=== PATIENT | male | born 1960 | race Caucasian/White ===

== ENCOUNTER 2017-06-26 09:06 | Inpatient (IN) ==
[~2017-06-26 09:06] MED LIST: BUPIVACAINE 0.25%/EPI 1:200,000 30ml SDV ONE; INDOCYANINE GREEN 25mg INJECTION ONE
[2017-06-26] MEDS ORDERED: SALINE FLUSH 10ml SYRINGE IV PRN (09:19)
[2017-06-26] MEDS ORDERED: LIDOCAINE 1% (10mg/ml) 2mL INJ PF SDV ID ONE (09:19)
[2017-06-26] MEDS ORDERED: HEPARIN SUB-Q 5,000units/0.5ml INJECTION SQ ONE (09:19)
[2017-06-26] MEDS ORDERED: ERTAPENEM 1 G in NS 100 ML IV ONE (09:19)
[2017-06-26 09:26] VITALS: BMI 28.0
[2017-06-26] MEDS: LR 1,000 ML IV SCH ×3 (09:53→15:45)
[2017-06-26] MEDS ORDERED: PROPOFOL 20 ML ONE ×2 (10:52→12:06)
[2017-06-26] MEDS ORDERED: ROCURONIUM 50 MG/5 ML INJECTION IVP ONE (10:52)
[2017-06-26] MEDS ORDERED: LACRI-LUBE EYE OINT 3.5gm ONE (10:57)
[2017-06-26] MEDS ORDERED: SEVOFLURANE 250ml LIQUID IH ONE (10:57)
[2017-06-26] MEDS ORDERED: FentaNYL 250 MCG/5 ML INJECTION ONE (11:38)
[2017-06-26] MEDS ORDERED: VECURONIUM 10 MG/10 ML VIAL IV ONE ×2 (12:07→13:37)
[2017-06-26] MEDS ORDERED: SALINE FLUSH 10ml SYRINGE ONE ×2 (12:07→12:26)
[2017-06-26] MEDS ORDERED: BUPIVACAINE 0.25%/EPI 1:200,000 30ml SDV SQ ONE (12:19)
[2017-06-26] MEDS ORDERED: EPHEDRINE 50mg/ml INJECTION ONE (12:26)
--- NOTE | 2017-06-26 15:30 | Operative Note ---
DATE OF PROCEDURE 06/26/2017 PREOPERATIVE DIAGNOSIS Colovesical fistula. POSTOPERATIVE DIAGNOSIS Colovesical fistula. PROCEDURE PERFORMED Placement of left ureteral stent. PRIMARY SURGEON Dominic Dick MD COMPLICATIONS None. DRAINS 14 [place]ian Joyce. INDICATION FOR THE PROCEDURE This is a 58-year-old patient who is undergoing a robotic colovesical fistula repair today with Dr. Woo. I was asked to place ureteral stents in the ureters in order to help identify them during the surgery. DESCRIPTION OF PROCEDURE The patient was prepped and draped in the room when I got here. He was in the dorsal lithotomy position. After a formal time-out was done, I introduced my rigid cystoscope inside the bladder. He had a slightly enlarged prostate. The two ureteral orifices were orthotopic in position. I began the procedure by placing the lighted stent on the right side over a wire. This was advanced to the two-bar shaan. Then the cystoscope was removed. I then reintroduced the cystoscope and placed a stent in a similar fashion on the left side. I then attempted to remove the cystoscope. However, every time I did that I was pulling one of the stents out with it. This was probably secondary to the fact that the urethra was too small to accommodate the scope and two stents. I attempted to use a smaller cystoscope which was a 17 Maur[place]ian. However, I kept having the same problem. In discussion with Dr. Woo, he was okay with placing a stent just on the left side. So, I put the lighted stent on the left side over a wire, then removed my cystoscope. I then placed a 14 [place]ian Joyce in the bladder and secured it to the stent with silk ties. The lighted stent was then connected to the electrodes and to the generator. This concluded the urology portion of the procedure. The care of the patient was handed to Dr. Woo at this point. [facility]
[2017-06-26] MEDS ORDERED: INDOCYANINE GREEN 25mg INJECTION IVP ONE (15:51)
[2017-06-26] MEDS ORDERED: ONDANSETRON 4 MG/2 ML INJECTION IVP PRN (16:21)
--- NOTE | 2017-06-26 16:49 | General Surgery Procedure Note ---
Date of Procedure: 06/26/17 Surgeon: Daya Woo (Dr. Dick for ureteral stents) Conservation Science Teacher: Gray Valdovinos APRN Postoperative Diagnosis: colovesicle fistula Procedure: Robotic assisted with conversion to open sigmoid colectomy with primary anastamosis and repair of colovesicle fistula Estimated Blood Loss: See Anesthesia Record.
[2017-06-26] MEDS: HYDROMORPHONE 2 MG/ML INJECTION IVP PRN ×4 (17:01→17:31)
[2017-06-26] MEDS: DiphenhydrAMINE 50 MG/ML INJECTION IVP PRN ×2 (17:36→18:22)
[2017-06-26] MEDS: MORPHINE SULFATE 10 MG/ML VIAL IVP PRN ×5 (17:46→18:36)
[2017-06-26] MEDS ORDERED: ONDANSETRON ODT 4 MG TABLET PO PRN (18:55)
[2017-06-26] MEDS ORDERED: METOCLOPRAMIDE 10mg/2ml INJECTION IVP PRN (18:55)
[2017-06-26] MEDS ORDERED: HYDROMORPHONE 2 MG/ML INJECTION IVP PRN (18:55)
[2017-06-26] MEDS: MORPHINE PCA 30 MG/30 ML SYRINGE IV PRN (19:09)
--- NOTE | 2017-06-26 19:43 | Anesthesia Postoperative Note ---
- Date and Time Date: 06/26/17 Time: 19:43 - Status Patient Participated in Evaluation: Patient Participated in Person Vital Signs: Temperature 97.2 F 06/26/17 18:50 Pulse Rate 97 06/26/17 18:45 Respiratory Rate 20 06/26/17 19:14 Blood Pressure 125/60 06/26/17 18:45 Pulse Oximetry 93 06/26/17 18:45 Respiratory Function: Airway Patent, Regular Respirations Cardiovascular Function: Regular Pulse EKG: Sinus Rhythm Mental Status: Alert and Oriented Pain Intensity: 6 Hydration: IV Infusing Complications During Recover: None Apparent - Follow-Up Instructions Instructions: Per Surgeon
[2017-06-26] MEDS: D5-1/2NS with KCL 20mEq 1,000 ML IV SCH (20:06)
[2017-06-26] MEDS ORDERED: ALBUTEROL 2.5mg/3ml (0.083%) NEB AEROSOL PRN (20:12)
[2017-06-26] MEDS ORDERED: LR 1,000 ML IV SCH (21:00)
[2017-06-26] MEDS: KETOROLAC 30 MG/ML INJECTION IVP PRN (23:38)
[2017-06-27] MEDS: D5-1/2NS with KCL 20mEq 1,000 ML IV SCH ×3 (04:35→22:33)
[2017-06-27] MEDS: KETOROLAC 30 MG/ML INJECTION IVP PRN ×3 (05:45→17:40)
[2017-06-27] MEDS: PANTOPRAZOLE 40 MG INJECTION IVP SCH (08:37)
--- NOTE | 2017-06-27 08:37 | General Surgery Progress Note ---
Subjective Patient reports: no flatus (but feels like he is about to pass flatus, there are bowel sounds) Narrative: In the recliner this morning. Denies nausea, wants food. States pain fairly well controlled with Toradol and occasional Morphine COST ESTIMATING ENGINEER dose. Pain worst with cough or sneeze. - Vital Signs Last Vital Signs Temp 98.3 F 06/27/17 04:00 Pulse 84 06/27/17 08:00 Resp 16 06/27/17 08:00 BP 114/63 06/27/17 06:00 Pulse Ox 100 06/27/17 08:00 - Laboratory Result Diagrams: 06/27/17 04:29 06/27/17 04:29 - Pathology Pending - Abnormal Exam Abdominal: obese, hypoactive bowel sounds (but present) - Normal Exam General: awake, alert, oriented, no acute distress Cardiovascular: regular rate Respiratory: clear bilaterally, no labored breathing Abdominal: appropriately tender, incision(s) (stapled, dressings not removed) Male: other (Caba in place, 40 ml the last hour, dark tea colored, not unexpected after having had ureteral stents.) Assessment and Plan (1) Colovesical fistula Current Visit: Yes Status: Acute (2) Hx of diverticulitis of colon Current Visit: Yes Status: Resolved (3) Arthritis Current Visit: Yes Status: Chronic (4) HTN (hypertension) Current Visit: Yes Status: Chronic Qualifiers: Hypertension type: essential hypertension Qualified Code(s): I10 - Essential (primary) hypertension Plan: POD #1 post open sigmoid resection with bladder repair for colovesical fistula some bowel sounds, pain controlled with Toradol and occasional Morphine COST ESTIMATING ENGINEER, Caba with adequate output, dark tea colored as expected after ureteral stents Will advance to clear liquid diet Keep caba in place for about a week to keep bladder decompressed and allow time for repair to heal. Continue Invanz daily due to spillage of puss and some stool into the abd during surgery. BP 114/55, will hold off on starting home HTN meds for now. Lovenox and SCD's for DVT prophylaxis. Protonix for gastric protection. Hospital Course Summary Disclaimer: The visit summary below is not to be considered part of the above Progress Note. Hospital Course: 06/27/2017 POD #1 post open sigmoid resection with bladder repair for colovesical fistula some bowel sounds, pain controlled with Toradol and occasional Morphine COST ESTIMATING ENGINEER, Caba with adequate output, dark tea colored as expected after ureteral stents Will advance to clear liquid diet Keep caba in place for about a week to keep bladder decompressed and allow time for repair to heal. Continue Invanz daily due to spillage of puss and some stool into the abd during surgery. BP 114/55, will hold off on starting home HTN meds for now. Lovenox and SCD's for DVT prophylaxis. Protonix for gastric protection.
[2017-06-27] MEDS: ENOXAPARIN 40 MG/0.4 ML INJECTION SQ SCH (08:38)
--- NOTE | 2017-06-27 09:04 | Operative Note ---
DATE OF SERVICE 06/26/2017 SURGEON Jose Manuel Woo MD PETROLEUM REFINERY LABORER Gray Valdovinos APRN PREOPERATIVE DIAGNOSIS History for abdominal pain, abnormal CT scan revealing probable diverticular abscess in conjunction with colovesical fistula. POSTOPERATIVE DIAGNOSIS History for abdominal pain, abnormal CT scan revealing probable diverticular abscess in conjunction with colovesical fistula. PROCEDURE Attempted robotic assisted laparoscopic low anterior with conversion to open procedure and repair of colovesical fistula/low anterior resection. ANESTHESIA General endotracheal EBL AND FLUIDS Please see chart. BRIEF HISTORY/INDICATIONS Mr. Rizo is a 57-year-old gentleman who recently had been evaluated by his urologist, Dr. Dick. The patient did have a history for pneumaturia and fecaluria consistent with that of a colovesical fistula. Upon cystoscopy he was not found to have an obvious colovesical fistula. He did, however, have a CT scan that revealed a probable diverticular abscess in conjunction with a visible colovesical fistula. The patient had a history for diverticulitis in the past. Patient had underwent a colonoscopy per his report about a year ago that was within normal limits. The patient was began on oral antibiotics. Three to four weeks later, a CT scan was obtained that did not reveal resolution of the diverticular abscess but did reveal improvement of the size of the abscess. As a result of the above indications, it was recommended to the patient that he undergo surgical intervention/sigmoid/low anterior resection. Patient presents today to undergo this procedure. FINDINGS Upon laparoscopy and laparotomy, the liver edge was smooth and without nodularities. Gallbladder was without palpable stones. Small bowel was without noted abnormalities. The ascending colon, transverse colon, and descending colon were normal down to the distal aspect of the sigmoid colon. There was a distal portion of the sigmoid colon that was densely adhered along the left lateral pelvic wall. The sigmoid colon itself had also formed a loop upon itself and was densely adherent to itself as well as to the rectum. A portion of the sigmoid colon was also densely adhered to the bladder. Furthermore, there was some small bowel that was also adhered along this phlegmonous mass within the pelvis. I attempted to resect this phlegmonous mass in a robotic assisted laparoscopic approach. This was to no avail and the procedure was therefore converted to an open procedure. Sigmoid colon and proximal rectum was resected. A small opening could be seen within the bladder after the colon was dissected away from the bladder. The hole in the bladder was fairly small and on the order of about 5-8 mm in diameter. The bladder was repaired in two layers. An anastomosis/coloproctostomy was performed without incident. DESCRIPTION OF PROCEDURE After informed consent was obtained, patient was brought to the operative suite , placed on the table in a supine fashion. The abdomen was then prepped and draped in sterile fashion. Formal time-out was then completed. 0.25% Marcaine with epinephrine was injected just beneath the left subcostal margin. A 4-5 mm incision was made through the area of analgesia. Veress needle was then introduced through the small incision and into the peritoneal cavity. Pneumoperitoneum was established to a patient pressure of 15 mmHg utilizing carbon dioxide. Next, additional 0.25% Marcaine with epinephrine was injected about 5 cm cephalad and to the right of the umbilicus. A 2 cm incision was then made overlying the area of analgesia. A camera port was then advanced through this small incision and into the peritoneal cavity. Laparoscope was then inserted and one could see the Veress needle as it coursed through the anterior abdominal wall in the left upper quadrant. The Veress needle was removed under direct visualization. Two additional 8 mm ports were then placed within the left upper quadrant of the anterior abdominal wall as well as along the left lateral abdominal wall. A stapler port was placed within the right lower quadrant. Am AirSeal assist port was then also placed within the right upper quadrant. Each port site was preinjected with 0.25% Marcaine with epinephrine and placed under direct visualization. The patient was then placed in reverse Trendelenburg and rotated towards his right. Small bowel was then attempted to be advanced up into the right upper quadrant of the abdomen. One could see there were some adhesions between a segment of the small bowel and the phlegmonous mass that could be seen within the left lower quadrant of the abdominal cavity. Next, the robot was then docked overlying the patient's left hip at a 45 degree angle. I then proceeded to the console. A Graptor was placed within robotic arm #3. Fenestrated bipolar grasper was placed in robotic arm #2. Scissors were placed in robotic arm #1. First the white line of Toldt was incised along the left pericolic gutter and then the left colon was reflected medially. Urology had placed a ureteral stent which did light up very well and one could clearly see the anatomic location of the left ureter which did aid in the dissection. Left colon was then continued to be reflected medially. Attention was then focused towards the phlegmonous mass within the left pelvis. There was a portion of small bowel adhered to the phlegmonous mass. Careful and meticulous dissection was carried out and the small bowel that was adhered to the sigmoid colon and rectum was dissected away. The rectum and sigmoid colon were densely adhered along the left lateral pelvic wall as well as to the bladder itself. Perhaps the next hour to hour-and-a- half was spent attempting to dissect this phlegmonous mass away from the left lateral pelvic wall and from the bladder. Perhaps about 50% of the phlegmonous mass was able to be dissected away. A small abscess was encountered anterior to the sigmoid colon, adjacent to the bladder. This abscess was involving the anterior aspect of the bladder and slightly to the left of midline. One could see stool-like contents as well as some "corn" within the abscess cavity. Upon entering the abscess cavity, utilizing the da Wes robotic suction tip, the abscess was quickly suctioned and did not spill within the peritoneal cavity. Debris within the abscess cavity was removed. Dissection was then continued for an additional 15-20 minutes. I did reach a point where I felt like the procedure was not progressing and we were reaching somewhat of a "stalemate" in the procedure as a result of the marked inflammatory changes that were present and the loss of normal tissue planes. I therefore elected to proceed with conversion to an open procedure. Robot was then undocked. A standard midline incision was then made from just above the pubic symphysis up to and above the umbilicus. A Bookwalter retractor was then placed to provide adequate exposure. One could then see this phlegmonous mass that was densely adhered along the left lateral pelvic wall as well as to the bladder. A finger fracture technique was utilized and a portion of the adhesions was able to be taken down in this fashion. Next, utilizing electrocautery as well as right angle dissector, the remaining phlegmonous mass was able to be carefully and meticulously dissected away from the left lateral pelvic wall as well as from the bladder. The left ureter was clearly identified and preserved in its entirety during this process. Next I elected to proceed with resection of the diseased segment. A point upon the colon was then ascertained within the mid descending colon region about 15 cm proximal to this phlegmonous mass. A small opening was then created within the mesentery and ESA 75 stapler was placed across this location and fired. The mesentery was then sequentially divided between the right angle clamps down towards the sacral promontory region. Next , the mesorectum was then divided sequentially between right angle clamps up to a point about 5 cm beyond the phlegmonous mass involving the proximal rectum and sigmoid colon. Mesorectum was incised out laterally. A tissue plane was created between the bladder and the anterior aspect of the rectum and dissection was carried out down to slightly below the peritoneal reflection until healthy "pliable" rectum was obtained. The mesorectum was then divided up to this point. Contour stapler was then placed across the rectum at this location just beneath the peritoneal reflection and fired. The sigmoid colon and proximal rectum were then passed off the table as a surgical specimen. Attention was then focused back towards the bladder. Right angle clamp was utilized and was able to eventually be advanced into a small opening of the anterior portion of the bladder where the colon was densely adhered to the bladder. The opening into the bladder was only on the order of about 5 mm in diameter. I then had the nurse clamp the Joyce catheter and irrigate the bladder with methylene blue saline. One could then see the methylene blue saline beginning to extravasate out through this small opening within the bladder at the site of the prior colovesical fistula. This small opening within the bladder was then closed in two layers utilizing 3-0 Vicryl. Then I had my nurse once again instill methylene blue saline into the bladder until the bladder was fairly distended. No further extravasation of methylene blue saline could be seen coming from the repair of the bladder. Nurse then unclamped the Joyce catheter to drain the bladder. Attention was then focused towards completion of the coloproctostomy. Proximal portion of the staple line was then grasped with two Derrick clamps and retracted anteriorly. The mesentery surrounding the colon at its end was then carefully and meticulously dissected away. Derrick clamp was then placed just proximal to the staple line for one could see a few diverticula adjacent to the staple line. Knife was then utilized and the colon was transected proximal to the Derrick clamp and the visible remaining diverticula were then excised. Three Allis clamps were then placed upon the transected end of the colon in a triangulated fashion. A 28 mm EEA sizer was able to be advanced into the transected end of the colon without difficulty. A 29 mm EEA stapler was then obtained. Anvil portion of the stapler was then placed through the transected end of the colon and the transected end of the colon was then closed in a pursestring fashion utilizing 2 -0 Prolene. Pursestring suture was then tied securely, resulting in a nice imbrication of the colonic mucosa against the anvil. Since we had the da Wes camera still present, I had Anesthesia administer 3 mL of ICG intravenously. I then utilized fluorescence capability of the da Wes camera and one could see that the colon fluoresced quite well down to the anvil portion of the stapler, i.e., there was excellent blood supply present down to the transected end of the colon. Next, attention was then focused back to the pelvis. I had my assistant statistician then proceed to break scrub and go between the patient's legs. The assistant statistician then advanced a 28 mm sizer up in through the anal verge and into the rectum. Sizer was then removed and she then advanced the stapler with my guidance up to the staple line upon the rectum. Trocar portion of the stapler was then opened and allowed to exit just lateral to the prior staple line upon the rectum. The anvil portion of the stapler was then attached to the trocar portion and the stapler was then tightened to the appropriate tension and fired. Stapler was then loosened and removed from the anal verge. It should also be noted the left ureter was continued to be visualized during the course of the dissection and anastomosis. It remained to be intact throughout its entirety. Saline was then placed within the pelvis. I then grasped the remaining descending colon proximal to the anastomosis so that it was occluded. Financial Compliance Officer then placed a rigid proctoscope into the anal verge and air was insufflated into the rectum and colon until the anastomosis was fairly taut with air. At no point in time could one see any air bubbles coming forth from the staple line. Rigid proctoscope was then removed. Instrument, sponge and needle count was performed and found to be correct. Prior areas of dissection were inspected and found to be hemostatic in nature. Attention was then directed towards closure. New gowns, gloves and instruments were then obtained. The fascial opening of the camera port and the stapler port was then closed with 0 Vicryl in a [id number] fashion. Fascia was then closed in a running fashion with #1 PDS suture. Skin and subcutaneous tissue were then irrigated with Betadine solution. Skin incisions were then closed with [place]. The patient was awakened from his anesthetic and sent back to the recovery room once deemed in stable condition. Additionally, it should be noted that Gray Valdovinos APRN, was present throughout the entire case and played a pivotal role in providing assistance and exposure during the course of the procedure. DILSHAD
[2017-06-27] MEDS: ERTAPENEM 1 G in NS 100 ML IV SCH (10:19)
--- NOTE | 2017-06-27 14:38 | Progress Note ---
DATE 06/27/2017 FINDINGS Mr. Rizo was seen this morning on rounds. He states that he has been doing fairly well. He has had some moderate incisional tenderness as one would expect. OBJECTIVE VITALS: Temperature 98.3, pulse 87, respirations 15, blood pressure 114/55, SaO2 97% on room air. CHEST: Clear to auscultation bilaterally. HEART: Regular rate and rhythm. Normal S1, S2, without gallops, murmurs or clicks. ABDOMEN: Palpation of the abdomen reveals some incisional tenderness but there is no evidence for involuntary guarding or rebound. LABORATORY/RADIOGRAPHIC EVALUATION The patient had a CBC today and his white count was slightly elevated at 11.1. Hemoglobin overall stable at 12.8. BMP obtained and found to be essentially within normal limits. ASSESSMENT 57-year-old gentleman status post drainage of intraabdominal abscess, repair of colovesical fistula, low anterior resection, patient currently doing well. PLAN Will continue with current care at this time. Typically would DC Joyce catheter and give no further antibiotics. In this situation secondary to fact that he had a colovesical fistula and the bladder was repaired, will leave Joyce catheter in for one week's duration. Additionally, secondary to the fact that he was found to have a small intraabdominal abscess, will continue with intravenous antibiotics over the course of the next week. Otherwise we will continue with current care as stated above. DILSHAD
[2017-06-27] MEDS: MORPHINE PCA 30 MG/30 ML SYRINGE IV PRN (15:57)
[2017-06-28] MEDS: KETOROLAC 30 MG/ML INJECTION IVP PRN ×2 (04:19→10:53)
[2017-06-28] MEDS: D5-1/2NS with KCL 20mEq 1,000 ML IV SCH ×3 (06:50→20:17)
--- NOTE | 2017-06-28 07:29 | Anesthesia Preoperative Report ---
Anesthesia Preoperative Record - Date and Time Date: 06/26/17 Preoperative Diagnosis: Low Anterior Resection K57.20 N32.1 Proposed Procedure: robot assist low anterior colon resection NPO Since Date: 06/25/17 NPO Since Time: 22:00 Allergies/Adverse Reactions: Allergies Allergy/AdvReac Type Severity Reaction Status Date / Time apremilast [From Otezla] Allergy Vomiting Verified 06/26/17 09:37 metronidazole AdvReac Unknown NASTY FILM Verified 06/26/17 09:37 IN MY MOUTH hydrocodone bit AdvReac Unknown Nausea Uncoded 06/26/17 09:37 Metronidazole HCl AdvReac Unknown NASTY FILM Uncoded 06/26/17 09:37 IN MY MOUTH - Vital Signs Vital Signs: Temperature 97.1 F 06/28/17 04:00 Pulse Rate 78 06/28/17 06:00 Respiratory Rate 20 06/28/17 06:00 Blood Pressure 117/72 06/28/17 06:00 Pulse Oximetry 93 06/28/17 06:00 Height and Weight: Height 1.8 m Weight 94 kg Body Mass Index 28.0 - Medications Inpatient Medications: Current Medications Albuterol Sulfate (Proventil Neb (0.083%)) 2.5 mg AEROSOL PRN PRN Last Admin: 06/27/17 07:55 Dose: 2.5 mg Enoxaparin Sodium (Lovenox) 40 mg SQ DAILY [facility] Last Admin: 06/27/17 08:38 Dose: 40 mg Hydromorphone HCl (Dilaudid) 0.5 mg IVP Q2H PRN PRN Reason: Pain Last Admin: 06/27/17 23:10 Dose: 0.5 mg Potassium Chloride/Dextrose/Sod Cl (D5-1/2ns With Kcl 20meq Premix) 1,000 mls @ 125 mls/hr IV .Q8H TRESA Last Admin: 06/28/17 06:50 Dose: 125 mls/hr Ertapenem 1 g/ Sodium Chloride 100 mls @ 200 mls/hr IV Q24H [facility] Last Infusion: 06/27/17 11:00 Dose: Infused Ketorolac Tromethamine (Toradol Inj) 30 mg IVP Q6H PRN PRN Reason: Pain Last Admin: 06/28/17 04:19 Dose: 30 mg Metoclopramide HCl (Reglan) 10 mg IVP Q6H PRN PRN Reason: Nausea &/or vomiting Last Admin: 06/27/17 22:56 Dose: 10 mg Metoprolol Tartrate (Lopressor) 25 mg PO HS [facility] Last Admin: 06/27/17 20:31 Dose: 25 mg Morphine Sulfate (Morphine Sulfate Restuarant Crew Worker) 30 mg IV PRN PRN; Protocol PRN Reason: Protocol Last Admin: 06/27/17 15:57 Dose: 30 mg Ondansetron HCl (Zofran Odt Tablet) 4 mg PO Q4H PRN PRN Reason: Nausea &/or vomiting Oxycodone/Acetaminophen (Percocet 5/325) 1 - 2 tab PO Q5H PRN PRN Reason: Pain Pantoprazole Sodium (Protonix Iv) 40 mg IVP DAILY [facility] Last Admin: 06/27/17 08:37 Dose: 40 mg Home Medications: Home Medications Medication Instructions Recorded Confirmed Type Meloxicam 15 mg PO DAILY #0 08/15/12 06/23/17 History Esomeprazole Magnesium [Nexium 20 mg PO HS 11/18/16 06/26/17 History 24Hr] Lyrica (pregabalin) 150 mg capsule 1 cap PO BID 90 Days #180 cap 06/07/17 History erythromycin 500 mg tablet See Label Instructions PO TID #6 06/07/17 06/26/17 Rx tab metoclopramide 10 mg tablet See Label Instructions PO .COMPLEX 06/07/17 Rx #2 tab ondansetron 4 mg disintegrating 4 mg PO Q6H PRN #20 tab 06/07/17 06/26/17 Rx tablet Flomax (tamsulosin) 0.4 mg capsule 0.4 mg PO Q24H #90 cap 06/12/17 06/26/17 Rx Acetaminophen [Tylenol Arthritis] 650 mg PO TID 06/23/17 06/26/17 History Folic Acid [Folate] 1 tab PO BID 06/23/17 06/26/17 History Lisinopril [Prinivil] 1 tab PO HS 06/23/17 06/26/17 History Metoprolol Tartrate [Lopressor] 1 tab PO HS 06/23/17 06/26/17 History Tramadol [Ultram] 1 tab PO TID 06/23/17 06/26/17 History Is Patient on Beta Eliseo?: No - Medical History Respiratory: Reports: Asthma, Bronchitis (HX OF) DENIES: Sleep Apnea Cardiovascular: Reports: Hypertension Gastrointestional: Reports: Gastroesophageal Reflux Disease, Other ( DIVERTICULOSIS) DENIES: Nausea or Vomiting Present - Surgical History HEENT Surgeries: Reports: Eye Surgery (BILATERAL CAT) GI Surgery/Treatments: Reports: Hernia Repair (X3) Surgery/Treatment: REPORT: Other (CYSTOSCOPY) Musculoskeletal Surgery/Tx: Reports: Total Knee Replacement (BILATERAL), Other ( LEFT GREAT TOE AMPUTATION) Anesthesia Reactions: None Hx Family Anesthesia Reaction: No History of Motion Sickness: No - Social History Smoking Status: Former smoker Hx Chewing Tobacco Use: No Second Hand Exposure: No Substance Use Type: does not use Alcohol Intake Frequency: does not drink - Pertinent Findings Laboratory: CBC and BMP 06/28/17 04:33 06/28/17 04:33 BMP 06/28/17 04:33 Sodium 141 Potassium 4.5 Chloride 104 Carbon Dioxide 28 BUN 9.0 Creatinine 0.7 L D Glucose 131 H Calcium 8.8 EKG: Sinus Rhythm - Physical Exam Respiratory Exam: Present: lungs clear Cardiovascular Exam: Present: regular rate and rhythm, no murmur - Airway Assessment Mallampati Score: II TMD: 3 Fingerbreadths Neck Extension: good Teeth: chipped teeth/crowns Overall Assessment: no airway concerns - ASA ASA Score: 2 - Plan Anesthesia: General Inhalation Gases - Discussion Discussion: Discussed risks/options/alternatives of anesthesia and questions answered. Patient consents. Nursing pain assessment noted. Present for Discussion: spouse, family member Attestation Statement: Prior to the delivery of any anesthetic medication, I examined the patient, developed the plan, obtained the patient's consent and discussed the risk and benefits of the procedure with the patient/guardian. - Additional Information Seen by Anesthesia: Yes
[2017-06-28] MEDS: ENOXAPARIN 40 MG/0.4 ML INJECTION SQ SCH (08:47)
[2017-06-28] MEDS: PANTOPRAZOLE 40 MG INJECTION IVP SCH (08:47)
[2017-06-28] MEDS: ERTAPENEM 1 G in NS 100 ML IV SCH (10:55)
--- NOTE | 2017-06-28 13:56 | Progress Note ---
DATE 06/28/2017 FINDINGS Mr. Rizo was seen earlier this morning on rounds. He was without complaints. He was requesting "more to eat". OBJECTIVE VITALS: Afebrile. Normotensive. Please refer to EMR. CHEST: Clear to auscultation bilaterally. HEART: Regular rate and rhythm. Normal S1, S2, without gallops, murmurs or clicks. ABDOMEN: Soft. Minimal incisional tenderness. No evidence for guarding or rebound. LABORATORY/RADIOGRAPHIC EVALUATION The patient had a CBC today that was unremarkable. White count is 10.8. Hemoglobin is 12.4. BMP obtained and found to be without marked abnormalities. ASSESSMENT 57-year-old gentleman status post low anterior resection secondary to colovesical fistula with associated diverticular abscess. Patient doing well. PLAN Will transfer out to surgical floor. Advance to full liquids. Continue with current care. Will leave Joyce catheter in as well as continue with antibiotics given presence of colovesical fistula and diverticular abscess. MTDD
[2017-06-29] MEDS: MORPHINE PCA 30 MG/30 ML SYRINGE IV PRN (00:53)
[2017-06-29] MEDS: D5-1/2NS with KCL 20mEq 1,000 ML IV SCH ×4 (00:55→19:51)
[2017-06-29] MEDS ORDERED: Bisacodyl EC TAB 5 MG TABLET PO ONE (09:03)
--- NOTE | 2017-06-29 09:08 | General Surgery Progress Note ---
Subjective Patient reports: feels better, pain is less, no flatus, no bowel movement Narrative: Tolerating full liquids. States he can "feel gas rumblings quotes mid abdomen but has not experienced flatus or bowel movement yet. Denies nausea and is tolerating full liquids without difficulty. He is ambulating fairly frequently. Caba remains in place due to bladder repair. Denies chest pain, shortness of breath. Respiratory therapy overnight eval indicated no meaningful desaturation of oxygen below 90%. Patient states that incision is "itchy." - Vital Signs Last Vital Signs Temp 96.2 F L 06/29/17 08:28 Pulse 71 06/29/17 08:28 Resp 16 06/29/17 08:28 BP 135/91 H 06/29/17 08:28 Pulse Ox 97 06/29/17 08:28 - Laboratory Result Diagrams: 06/29/17 04:23 06/29/17 04:23 - Normal Exam General: awake, alert, oriented, no acute distress Cardiovascular: regular rhythm, regular rate Respiratory: no labored breathing Abdominal: soft, appropriately tender, incision(s) (dressings removed and midline dressing had some old serous and bloody fluid on it, houston intact, no erythema, ecchymosis, sign of infection. Light dressing replaced on midline incision and trocar sites left open to air.) Male: other (Caba catheter in place with clear yellow urine.) Psychiatric: normal affect Neurological: CN 2-12 grossly intact Assessment and Plan (1) Colovesical fistula Current Visit: Yes Status: Acute (2) Hx of diverticulitis of colon Current Visit: Yes Status: Resolved (3) Arthritis Current Visit: Yes Status: Chronic (4) HTN (hypertension) Current Visit: Yes Status: Chronic Qualifiers: Hypertension type: essential hypertension Qualified Code(s): I10 - Essential (primary) hypertension Plan: POD#3 Labs are stable, vital signs stable. No flatus or bowel movement yet, we will encourage bowels Ducolax by mouth. We'll advance to regular diet once he has bowel movement. Continue ambulation and current care. Pathology pending. OVERNIGHT OXIMETRY NOTE This patient was on room air all night. There were two desats noted below 89% ane the initial desat at 0106 was coincidentally associated with a transfer to toilet (motion artifact). There are however, very faint sawtooth patterns seen through portions of the night with the most consistent seen from [id number] in which any desats do not dip below 90%. Hospital Course Summary Disclaimer: The visit summary below is not to be considered part of the above Progress Note. Hospital Course: 06/27/2017 POD #1 post open sigmoid resection with bladder repair for colovesical fistula some bowel sounds, pain controlled with Toradol and occasional Morphine METERMAN, Caba with adequate output, dark tea colored as expected after ureteral stents Will advance to clear liquid diet Keep caba in place for about a week to keep bladder decompressed and allow time for repair to heal. Continue Invanz daily due to spillage of puss and some stool into the abd during surgery. BP 114/55, will hold off on starting home HTN meds for now. Lovenox and SCD's for DVT prophylaxis. Protonix for gastric protection. 06/28/2017 POD#2 PLAN Will transfer out to surgical floor. Advance to full liquids. Continue with current care. Will leave Caba catheter in as well as continue with antibiotics given presence of colovesical fistula and diverticular abscess. 06/29/2017 POD#3 Labs are stable, vital signs stable. No flatus or bowel movement yet, we will encourage bowels Ducolax by mouth. We'll advance to regular diet once he has bowel movement. Continue ambulation and current care. Pathology pending. OVERNIGHT OXIMETRY NOTE This patient was on room air all night. There were two desats noted below 89% ane the initial desat at 0106 was coincidentally associated with a transfer to toilet (motion artifact). There are however, very faint sawtooth patterns seen through portions of the night with the most consistent seen from [id number] in which any desats do not dip below 90%.
[2017-06-29] MEDS: ENOXAPARIN 40 MG/0.4 ML INJECTION SQ SCH (09:39)
[2017-06-29] MEDS: PANTOPRAZOLE 40 MG INJECTION IVP SCH (09:40)
[2017-06-29] MEDS: ERTAPENEM 1 G in NS 100 ML IV SCH (11:59)
--- NOTE | 2017-06-29 18:59 | Progress Note ---
DATE OF SERVICE 06/29/2017 FINDINGS Mr. Rizo was seen earlier today on rounds. He states he did have some flatus but no BM. He states that he has been feeling a little bit more bloated but denies abdominal pain, nausea or vomiting. PHYSICAL EXAM VITAL SIGNS: Afebrile, normotensive. ABDOMEN: Soft. Minimal incisional tenderness. LABORATORY/RADIOGRAPHIC EVALUATION The patient had a CBC and BMP today that were unremarkable. ASSESSMENT 57-year-old gentleman status post low anterior resection secondary to colovesical fistula. Patient doing well. PLAN Continue with current care. Will advance diet to regular. Hopefully tomorrow the patient will begin to have some bowel activity. I am overall pleased with the patient's progress. DILSHAD
[2017-06-30] MEDS: D5-1/2NS with KCL 20mEq 1,000 ML IV SCH (04:54)
[2017-06-30] MEDS: PANTOPRAZOLE 40 MG INJECTION IVP SCH (08:20)
[2017-06-30] MEDS: ENOXAPARIN 40 MG/0.4 ML INJECTION SQ SCH (08:21)
[2017-06-30 11:31] VITALS: BP 114/72; PULSE 70; TEMP 98; O2SAT 95
[2017-06-30] MEDS: ERTAPENEM 1 G in NS 100 ML IV SCH (12:25)
[2017-06-30] MEDS: Oxycodone/Acetaminophen 5/325 1 TAB PO PRN ×2 (12:29→12:37)
[2017-06-30 12:37] VITALS: RESP 16
--- NOTE | 2017-06-30 12:39 | General Surgery Progress Note ---
Subjective Patient reports: feels better, pain is less, flatus, bowel movement Narrative: I saw the patient about 7:30 this morning, he was standing by the bed, just wanting to "stretch his legs." States abd pain is mostly "on the surface of the skin along the houston." Now that he is on a regular diet, suggested PO pain meds, will DC RED CROSS EXECUTIVE DIRECTOR. - Vital Signs Last Vital Signs Temp 98.0 F 06/30/17 11:30 Pulse 70 06/30/17 11:30 Resp 18 06/30/17 12:29 BP 114/72 06/30/17 11:30 Pulse Ox 95 06/30/17 11:30 - Laboratory Result Diagrams: 06/30/17 04:00 06/30/17 04:00 - Normal Exam General: awake, alert, oriented, no acute distress Cardiovascular: regular rhythm, regular rate Respiratory: equal bilaterally, no labored breathing Abdominal: BS normo active x4, soft, appropriately tender, incision(s) (CDI houston in tact) Male: other (Caba in place.) Psychiatric: normal affect Neurological: CN 2-12 grossly intact Assessment and Plan (1) Colovesical fistula Current Visit: Yes Status: Acute (2) Hx of diverticulitis of colon Current Visit: Yes Status: Resolved (3) Arthritis Current Visit: Yes Status: Chronic (4) HTN (hypertension) Current Visit: Yes Status: Chronic Qualifiers: Hypertension type: essential hypertension Qualified Code(s): I10 - Essential (primary) hypertension Plan: POD #4 Had 2 BM's per his report, advance to regular diet. DC RED CROSS EXECUTIVE DIRECTOR and IVF. Leg bag for caba today, and plan on DC this weekend with leg bag for daytime, and larger bag for night. Appointment in the office on Monday to DC Caba. Appointment with PCP for sleep apnea upon discharge. Hospital Course Summary Disclaimer: The visit summary below is not to be considered part of the above Progress Note. Hospital Course: 06/27/2017 POD #1 post open sigmoid resection with bladder repair for colovesical fistula some bowel sounds, pain controlled with Toradol and occasional Morphine RED CROSS EXECUTIVE DIRECTOR, Caba with adequate output, dark tea colored as expected after ureteral stents Will advance to clear liquid diet Keep caba in place for about a week to keep bladder decompressed and allow time for repair to heal. Continue Invanz daily due to spillage of puss and some stool into the abd during surgery. BP 114/55, will hold off on starting home HTN meds for now. Lovenox and SCD's for DVT prophylaxis. Protonix for gastric protection. 06/28/2017 POD#2 PLAN Will transfer out to surgical floor. Advance to full liquids. Continue with current care. Will leave Caba catheter in as well as continue with antibiotics given presence of colovesical fistula and diverticular abscess. 06/29/2017 POD#3 Labs are stable, vital signs stable. No flatus or bowel movement yet, we will encourage bowels Ducolax by mouth. We'll advance to regular diet once he has bowel movement. Continue ambulation and current care. Pathology pending. OVERNIGHT OXIMETRY NOTE This patient was on room air all night. There were two desats noted below 89% ane the initial desat at 0106 was coincidentally associated with a transfer to toilet (motion artifact). There are however, very faint sawtooth patterns seen through portions of the night with the most consistent seen from [id number] in which any desats do not dip below 90%. POD #4 Had 2 BM's per his report, advance to regular diet. DC RED CROSS EXECUTIVE DIRECTOR and IVF. Appointment with PCP for sleep apnea upon discharge.
[2017-06-30] MEDS ORDERED: MELOXICAM 15 MG TABLET PO SCH (15:30)
[2017-06-30] MEDS ORDERED: TAMSULOSIN 0.4 MG CAPSULE PO SCH (15:30)
[2017-06-30] MEDS ORDERED: MetroNIDAZOLE 500 MG TABLET PO SCH (17:30)
[2017-06-30] MEDS ORDERED: CIPROFLOXACIN 500 MG TABLET PO SCH (20:00)
[2017-06-30] MEDS ORDERED: AMOX/CLAV 875 MG/125 MG TABLET PO SCH (21:00)
[2017-06-30] MEDS ORDERED: PREGABALIN 150 MG CAPSULE PO SCH (21:00)
[2017-06-30] MEDS ORDERED: TRAMADOL 50 MG TABLET PO SCH (21:00)
[2017-06-30] MEDS ORDERED: LISINOPRIL 20 MG TABLET PO SCH (21:00)
--- NOTE | 2017-07-01 10:36 | Progress Note ---
DATE OF SERVICE 06/30/2017 FINDINGS Mr. Rizo was seen earlier today on rounds. He states that he is ready go home." He states that he has had a few liquidy bowel movements. He is tolerating a regular diet. EXAM VITAL SIGNS: Afebrile, normotensive. ABDOMEN: Soft. Incision is clean, dry and intact. LABORATORY/RADIOGRAPHIC EVALUATION The patient had a CBC and BMP today that were unremarkable. ASSESSMENT 57-year-old gentleman status post low anterior resection with repair of colovesical fistula. Patient currently doing well. PLAN Will go ahead and discharge to home with Joyce catheter and will discontinue his Joyce catheter at a one-week interval given his finding of a colovesical fistula and repair of his bladder. Will continue with ongoing oral antibiotics following discharge for an additional three to four days given the finding of this small localized abscess at time of surgery. Will plan on discharging this afternoon and continuing with current care as stated above. Will see the patient at the beginning of next week and discontinue Joyce catheter at that time. The patient was informed to contact me over the weekend if any concerns should arise. DILSHAD
--- NOTE | 2017-07-03 09:26 | Discharge Summary ---
Discharge Information Date of admission: 06/26/17 09:06 Attending Physician: Jose Manuel Woo MD Primary care physician: Ed Dove MD Consults: 06/26/17 06:06 Consult to Anesthesiology [CONS] Routine Reason For Exam: anesthesia 06/29/17 06:25 Case Management Consult [Case Management Consult] [CONS] Routine Reason For Exam: overnight oximetry - Discharge Diagnosis (1) Colovesical fistula Status: Acute (2) Hx of diverticulitis of colon Status: Resolved (3) Arthritis Status: Chronic (4) HTN (hypertension) Status: Chronic - Procedures Procedures: DATE OF SERVICE 06/26/2017 SURGEON Jose Manuel Woo MD SPORTS COORDINATOR Gray Valdovinos APRN PREOPERATIVE DIAGNOSIS History for abdominal pain, abnormal CT scan revealing probable diverticular abscess in conjunction with colovesical fistula. POSTOPERATIVE DIAGNOSIS History for abdominal pain, abnormal CT scan revealing probable diverticular abscess in conjunction with colovesical fistula. PROCEDURE Attempted robotic assisted laparoscopic low anterior with conversion to open procedure and repair of colovesical fistula/low anterior resection. DATE OF PROCEDURE 06/26/2017 PREOPERATIVE DIAGNOSIS Colovesical fistula. POSTOPERATIVE DIAGNOSIS Colovesical fistula. PROCEDURE PERFORMED Placement of left ureteral stent. PRIMARY SURGEON Dominic Dick MD - Laboratory Labs: 06/30/17 04:00 06/30/17 04:00 Laboratory Tests 06/26/17 06/26/17 06/28/17 09:51 09:51 04:33 WBC 9.4 10.8 Hgb 14.6 12.4 L Plt Count 241 222 Sodium 139 Potassium 4.4 BUN 17.0 Creatinine 1.0 06/28/17 06/30/17 06/30/17 04:33 04:00 04:00 WBC 8.9 Hgb 12.0 L Plt Count 212 Sodium 141 141 Potassium 4.5 4.6 BUN 9.0 8.0 L Creatinine 0.7 L D 0.7 L - Pathology Sigmoid colon: Acute diverticulitis with serositis, margins free of abnormality. No neoplasm. History of Present Illness HPI: BRIEF HISTORY/INDICATIONS Mr. Rizo is a 57-year-old gentleman who recently had been evaluated by his urologist, Dr. Dick. The patient did have a history for pneumaturia and fecaluria consistent with that of a colovesical fistula. Upon cystoscopy he was not found to have an obvious colovesical fistula. He did, however, have a CT scan that revealed a probable diverticular abscess in conjunction with a visible colovesical fistula. The patient had a history for diverticulitis in the past. Patient had underwent a colonoscopy per his report about a year ago that was within normal limits. The patient was began on oral antibiotics. Three to four weeks later, a CT scan was obtained that did not reveal resolution of the diverticular abscess but did reveal improvement of the size of the abscess. As a result of the above indications, it was recommended to the patient that he undergo surgical intervention/sigmoid/low anterior resection. Hospital Course This is a general summary of the patient's hospital course. For more details refer to the complete medical record. 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 Continue Invanz daily due to spillage of puss and some stool into the abd during surgery. BP 114/55, will hold off on starting home HTN meds for now. Lovenox and SCD's for DVT prophylaxis. Protonix for gastric protection. 06/28/2017 POD#2 PLAN Will transfer out to surgical floor. Advance to full liquids. Continue with current care. Will leave Caba catheter in as well as continue with antibiotics given presence of colovesical fistula and diverticular abscess. 06/29/2017 POD#3 Labs are stable, vital signs stable. No flatus or bowel movement yet, we will encourage bowels Ducolax by mouth. We'll advance to regular diet once he has bowel movement. Continue ambulation and current care. Pathology pending. OVERNIGHT OXIMETRY NOTE This patient was on room air all night. There were two desats noted below 89% ane the initial desat at 0106 was coincidentally associated with a transfer to toilet (motion artifact). There are however, very faint sawtooth patterns seen through portions of the night with the most consistent seen from [id number] in which any desats do not dip below 90%. 06/30/2017 POD #4 Had 2 BM's per his report, doing well on regular diet. DC GANG HEMSTITCHING MACHINE OPERATOR and IVF. DC to home today, on Cipro and Flagyl DC with Caba and leg bag, will present to Dr. Woo's office July 04 to remove caba Time spent with patient: 25 - 35 minutes Resuscitation Status: Full Code Discharge Plan - Med Rec/Dispo Referrals/Follow Up: Francesca Valdovinos APRN [Advanced Practice Nurse] - 07/04/17 9:30 am (Caba removal) Sadnra Instructions: Colectomy (DC), Urinary Leg Bag (GEN) Prescriptions: New RX: Ciprofloxacin [Cipro 500 mg] 500 mg PO Q12HR #14 tab RX: Ibuprofen 3 - 4 tab PO Q6H PRN #60 tab PRN Reason: Pain RX: MetroNIDAZOLE [Flagyl] 500 mg PO BID #14 tab RX: Oxycodone *IR* [Roxicodone *Ir*] 5 - 10 mg PO Q4H PRN #25 tab PRN Reason: Pain Continue RX: Esomeprazole Magnesium [Nexium 24Hr] 20 mg PO HS RX: Acetaminophen [Tylenol Arthritis] 650 mg PO TID RX: Folic Acid [Folate] 1 tab PO BID RX: Lisinopril [Prinivil] 1 tab PO HS RX: Metoprolol Tartrate [Lopressor] 1 tab PO HS RX: Tramadol [Ultram] 1 tab PO TID Lyrica (pregabalin) 150 mg capsule 1 cap PO BID 90 Days #180 cap metoclopramide 10 mg tablet See Label Instructions PO .COMPLEX #2 tab ondansetron 4 mg disintegrating tablet 4 mg PO Q6H PRN #20 tab PRN Reason: nausea Flomax (tamsulosin) 0.4 mg capsule 0.4 mg PO Q24H #90 cap Discontinued RX: Meloxicam 15 mg PO DAILY #0 erythromycin 500 mg tablet See Label Instructions PO TID #6 tab - Disposition 01 Discharged Home, Self-Care - Dismissal Complete Discharge Instructions are:: Complete
== END 2017-06-30 17:33 | disposition home or self-care (01) | DRG 654 ==
LOC: NMC.PERIOP 09:06 → CCU 18:50 → SRG 06-28 10:25
PROVIDERS: ADMIT Surgery; ATTEND Surgery